=== PATIENT | female | born 1950 | race Caucasian/White ===

== ENCOUNTER 2023-04-22 12:30 | Day surgery (SDC) | payer MEDICARE ==
[2023-04-22 13:26] VITALS: RESP 16; TEMP 98.3
[2023-04-22 15:13] VITALS: BP 119/61; PULSE 81
--- NOTE | 2023-04-22 18:13 | US ---
EXAMINATION TYPE: US FNA first lesion DATE OF EXAM: 04/22/2023 2:12 PM REASON FOR EXAM: 73-year-old female E04.1 NONTOXIC SINGLE THYROID NODULE RADIOLOGIST: Dr. Jarod Del Rio PROCEDURE: An initial scanning showed the 1.8 cm heterogeneous hypoechoic nodule in the right thyroid lobe. This was called to a TR 5 nodule on outside ultrasound possibly due to the presence of speckles which may represent calcifications. This isn't targeted for FNA. The procedure, along with the risks and complications were discussed with the patient. Patient agreed to proceed with the procedure. A consent was signed and placed in patient's chart. Maximum sterile barrier technique was utilized. Timeout was performed by myself. The right side of th e neck was sterilely prepped and draped in the usual fashion. 5 milliliters of 1% Lidocaine were util ized to anesthetize the superficial and deep soft tissues. Following that, under ultrasound guidance, 5 passes were made into the nodule with 5 cc syringe sucti on. After each pass, the sample was placed on a slide and then sent for pathology. Upon conclusion, hemostasis was achieved, and patient was discharged home in satisfactory condition. IMPRESSION: Successful FNA of the heterogeneous 1.8 cm right thyroid lobe nodule, called TR5 on outside ultrasoun d. Pathology pending.
== END 2023-04-22 14:30 | disposition home or self-care (01) ==
LOC: RADPROMAIN 12:30
PROVIDERS: ATTEND Family Medicine
DX: E04.1 Nontoxic single thyroid nodule (principal)
CPT/HCPCS: 10005; 88173; 88305